=== PATIENT | male | born 2000 | race Caucasian/White ===

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

== ENCOUNTER 2024-09-18 23:20 | Emergency (ER) | payer SELFPAY ==
[~2024-09-18] VITALS: Ht 167.6 cm; Wt 61.0 kg
[~2024-09-18 23:20] MED LIST changes: +BACTRIM DS1 TAB PO; +KEFLEX500 M1 PO
[2024-09-18] MEDS ORDERED: NEOMYCIN-BACITRACIN-POLYMYXIN 0.5 GM/PAK PAK TOP STA (23:38)
[2024-09-18] MEDS ORDERED: Diph, Acellular Pertussis, Tet 0.5 ML/VIAL (Tdap) SDV IM STA (23:38)
[2024-09-18] MEDS ORDERED: DICLOFENAC SODIUM 75 MG/TAB PO ONE (23:40)
[2024-09-18] MEDS ORDERED: traMADol HCL 50 MG/TAB PO ONE (23:40)
[2024-09-18] MEDS ORDERED: ACETAMINOPHEN 500 MG TAB PO ONE (23:40)
[2024-09-18] MEDS ORDERED: AMOXICILLIN & POT CLAVULANATE 875 MG/TAB PO ONE (23:40)
[2024-09-18] MEDS ORDERED: AMOX/K CLAV875 M1 PO (23:44)
[2024-09-19 00:16] VITALS: BP 121/77
== END 2024-09-19 00:16 | disposition home or self-care (01) | DRG 605 ==
LOC: ED 23:20
DX: S81.052A Open bite, left knee, initial encounter (principal); F17.200 Nicotine dependence, unspecified, uncomplicated; W54.0XXA Bitten by dog, initial encounter
CPT/HCPCS: 90715